=== PATIENT | female | born 1970 | race Caucasian/White ===

== ENCOUNTER 2024-06-07 20:17 | Emergency (ER) | payer OTHER, SELFPAY ==
[2024-06-07 20:27] VITALS: BP 180/94; PULSE 91; RESP 12; TEMP 37.1; O2SAT 98; BMI 27.4
--- NOTE | 2024-06-07 20:49 | ED.SYNCOPE ---
HPI - Syncope General Time Seen by Provider: 20:49 Date Seen: 06/07/24 Chief Complaint: Syncope/Fainted Stated Complaint: possible seizure Time Seen by Provider: 06/07/24 20:48 Source: patient, RN notes reviewed and old records reviewed Mode of arrival: ambulatory Limitations: no limitations History of Present Illness HPI narrative: 53-year-old who presents today with syncopal episode. Patient notes a lot of stress recently, was drinking alcohol and also had some marijuana, became lightheaded and passed out. Per family, patient had some jerking movements that were not constant of or sustained. No fall or injury. On waking patient was awake and alert. Patient denies preceding chest pain, nausea, vomiting, head pain. Takes losartan for blood pressure, no other medications. Related Data Previous Rx's ?Medication ?Instructions ?Recorded potassium chloride 20 mEq 20 meq PO DAILY #7 tabs 06/07/24 tablet,extended release Allergies Allergy/AdvReac Type Severity Reaction Status Date / Time bee venom protein (honey bee) Allergy Unknown Verified 06/07/24 20:37 gluten Allergy Unknown Verified 06/07/24 20:37 PFSH PFSH Social History Smoking Status: Never smoker Do you use any of these nicotine containing products: None Second hand tobacco smoke exposure: No How often do you have a drink containing alcohol: 2-4 times a month How many standard drinks containing alcohol do you have on a typical day: 3 or 4 How often do you have six or more drinks on one occasion: Less than monthly AUDIT-C Alcohol total score: 4 Non-prescribed substance use: denies use service: No Exam Narrative: Exam Narrative: General: Well-developed and well-nourished, no acute distress Head: Atraumatic and normocephalic Eyes: Pupils are equal reactive, extraocular motions intact, conjunctiva clear ENT: External nose and ears are normal, posterior pharynx without erythema or exudate Neck: No midline cervical tenderness, full spontaneous range of motion the neck, trachea midline, no adenopathy Heart: Regular rate and rhythm no murmurs or thrills Lungs: Clear to auscultation bilaterally without wheezes or crackles Abdomen: Soft, nontender, nondistended with active bowel sounds Musculoskeletal: No tenderness, deformity, or edema Neurologic: Awake, alert, and oriented x3, no gross focal neurologic deficits, cranial nerves intact as tested Psych: Mood and affect are appropriate Skin: No rashes Const: Vital Signs, click to edit/add: Vital Signs - 24 hr 06/07/24 20:27 Temperature 98.8 F Pulse Rate [Pulse Oximeter] 91 Respiratory Rate 12 Blood Pressure [Ri ght Upper Arm] 180/94 H Pulse Oximetry 98 Oxygen Delivery Me thod Room Air Course Course ED Course: Patient seen examined, no prior records for review. Patient presents today with syncopal episode. Family was concerned with possible seizure, does sound like she had some myoclonic jerks associated with this but no consistent tonic clonic activity and no postictal period. Patient denies chest pain prior to this although says she was feeling anxious and like her heart was racing. On exam here, awake and alert, occasionally tearful, no focal neurologic findings and heart is regular. Labs are ordered along with fluids, EKG and if no acute abnormalities patient can be discharged. Reevaluation(s) Time of Reevaluation #1: 21:19 Reevaluation #1: EKG ordered independently interpreted by me performed at 9:03 p.m. demonstrates sinus rhythm rate 79, no acute ST elevations or depressions, normal axis, normal intervals, CO 154, QTC 454. No prior for comparison Time of Reevaluation #2: 21:43 Reevaluation #2: Labs ordered and independently interpreted by me with negative troponin, normal CBC, mild hypokalemia and hyponatremia in patient has been given IV fluids, will begin oral potassium replacement as well. Time of Reevaluation #3: 22:04 Reevaluation #3: Labs ordered in [place] interpreted by me with normal urinalysis. Patient is stable for discharge with outpatient follow-up. Will be started on potassium replacement and can follow-up in clinic Vital Signs Vital signs: Initial Vital Signs Temperature 98.8 F 06/07/24 20:27 Temperature Source Temporal Artery Scan 06/07/24 20:27 Pulse Rate 91 06/07/24 20:27 Respiratory Rate 12 06/07/24 20:27 Blood Pressure 180/94 H 06/07/24 20:27 Blood Pressure Mean 122 H 06/07/24 20:27 Blood Pressure Position Sitting 06/07/24 20:27 Pulse Oximetry 98 06/07/24 20:27 Oxygen Delivery Method Room Air 06/07/24 20:27 Vital Signs Temperature 98.8 F 06/07/24 20:27 Pulse Rate 91 06/07/24 20:27 Respiratory Rate 12 06/07/24 20:27 Blood Pressure 180/94 H 06/07/24 20:27 Pulse Oximetry 98 06/07/24 20:27 Oxygen Delivery Method Room Air 06/07/24 20:27 Temperature 98.8 F 06/07/24 20:27 Pulse Rate 91 06/07/24 20:27 Respiratory Rate 12 06/07/24 20:27 Blood Pressure 180/94 H 06/07/24 20:27 Pulse Oximetry 98 06/07/24 20:27 Oxygen Delivery Method Room Air 06/07/24 20:27 Medications Administered Medications: Discontinued Medications Generic Name Dose Route Start Last Admin Trade Name Freq PRN Reason Stop Dose Admin Sodium Chloride 1,000 mls @ 1,000 mls/hr 06/07/24 21:00 06/07/24 21:10 0.9 % Sodium Chloride 1000 Ml IV 06/07/24 21:59 1,000 mls/hr .Q1H RIO Administration Potassium Bicarbonate 25 meq 06/07/24 21:44 06/07/24 21:51 Potassium Bicarb 25 Meq Effervescent Tab PO 06/07/24 21:45 25 meq ONCE ONE Administration MDM - Syncope Lab Data Labs: Lab Results 06/07/24 06/07/24 Range/Units 20:56 21:08 WBC 6.56 (4.50-11.00) K/uL RBC 3.86 L (4.00-5.20) m/uL Hgb 13.1 (12.0-16.0) gm/dL Hct 37.4 (33.0-51.0) % MCV 97 (80-100) fL MCH 34 (26-34) pg MCHC 35 (32-36) gm/dL RDW Coeff of Khris 11.7 (11.5-15.5) % Plt Count 236 (140-440) K/uL Neut % (Auto) 72.0 (42.0-72.0) % Lymph % (Auto) 17.5 L (20-44) % [place] % (Auto) 9.0 (0.0-11.0) % Eos % (Auto) 0.8 (0.0-7.0) % Baso % (Auto) 0.5 (0.0-3.0) % Neut # (Auto) 4.73 (1.7-7.0) K/uL Lymph # (Auto) 1.10 (0.90-2.90) K/uL [place] # (Auto) 0.60 (0.00-0.90) K/UL Eos # (Auto) 0.05 (0.00-0.50) K/uL Baso # (Auto) 0.03 (0.00-0.30) K/uL Abs Immat Gran (auto) 0.01 (0.00-0.30) K/uL Imm/Tot Granulo (auto) 0.2 % D-Dimer Quant (PE/DVT) 0.29 (0.00-0.50) ug/ml Sodium 130 L (135-149) mmol/L Potassium 3.1 L (3.6-5.1) mmol/L Chloride 96 (96-114) mmol/L Carbon Dioxide 25 (20-32) mmol/L Anion Gap 9 (7-15) mEq/L BUN 9 (7-30) mg/dL Creatinine 0.6 (0.5-1.5) mg/dL Estimated Creat Clear 99.18 Estimated GFR 106 ml/min Glucose 100 (60-115) mg/dL Calcium 9.4 (8.4-10.6) mg/dL Magnesium 2.2 (1.5-2.6) mg/dL Urine Color Yellow (Yellow) Urine Appearance Clear (Clear) Urine pH 7.0 (5.0-8.5) Ur Specific [place] <= 1.005 (1.000-1.030) Urine Protein Negative (Negative) Urine Glucose (UA) Negative (Negative) Urine Ketones Negative (Negative) Urine Blood 1+ A (Negative) Urine Nitrite Negative (Negative) Urine Bilirubin Negative (Negative) Urine Urobilinogen 0.2 (0.2-1.0) Ur Leukocyte Esterase Negative (Negative) POC Troponin I 0.00 L (0.01-0.04) ng/ml Discharge Plan Discharge Clinical Impression: Syncope, Hypokalemia Patient Disposition: Home, Self-Care Condition: Stable Instructions: Hypokalemia (ED), Syncope (ED) Additional Instructions: Fluids and rest, avoid alcohol Activity Level: Activity as Tolerated Discharge Diet: Regular Prescriptions: New potassium chloride 20 mEq tablet extended release 20 meq PO DAILY Qty: 7 0RF Follow Up/Referrals: Provider,Not a Local [Primary Care Provider] - Stand Alone Forms: [facility] Info Instructions
[2024-06-07] MEDS: 0.9 % SODIUM CHLORIDE 1000 ml 1,000 ML IV (21:10)
[2024-06-07 21:15] LABS: Basophils Absolute Auto 0.03 K/uL (0.00-0.30); Basophils Percent Auto 0.5 % (0.0-3.0); Eosinophils Absolute Auto 0.05 K/uL (0.00-0.50); Eosinophils Percent Auto 0.8 % (0.0-7.0); Hematocrit 37.4 % (33.0-51.0); Hemoglobin* 13.1 gm/dL (12.0-16.0); Immature Granulocytes Abs Auto 0.01 K/uL (0.00-0.30); Immature Granulocytes Pct Auto 0.2 %; Lymphocytes Percent Auto 17.5 % (20-44); Mean Corpuscular HGB Conc 35 gm/dL (32-36); Mean Corpuscular Hemoglobin 34 pg (26-34); Mean Corpuscular Volume 97 fL (80-100); Neutrophils Absolute Auto 4.73 K/uL (1.7-7.0); Platelet Count* 236 K/uL (140-440); RDW Coefficient of Variation % 11.7 % (11.5-15.5); Red Blood Count 3.86 m/uL (4.00-5.20); White Blood Count* 6.56 K/uL (4.50-11.00)
[2024-06-07 21:27] LABS: Slide Review Reflex No
[2024-06-07 21:29] LABS: Chloride* 96 mmol/L (96-114)
[2024-06-07 21:30] LABS: Potassium* 3.1 mmol/L (3.6-5.1); Sodium* 130 mmol/L (135-149)
[2024-06-07 21:32] LABS: Creatinine* 0.6 mg/dL (0.5-1.5); Est. Creatinine Clearance* 99.18; Estimated Glomerular Filt Rate 106 ml/min
[2024-06-07 21:33] LABS: Anion Gap 9 mEq/L (7-15); Blood Urea Nitrogen* 9 mg/dL (7-30); Calcium* 9.4 mg/dL (8.4-10.6); Carbon Dioxide* 25 mmol/L (20-32); Glucose* 100 mg/dL (60-115); Magnesium* 2.2 mg/dL (1.5-2.6)
[2024-06-07 21:34] LABS: D Dimer Quantitative* 0.29 ug/ml (0.00-0.50)
[2024-06-07] MEDS: POTASSIUM BICARB 25 MEQ EFFERVESCENT TAB PO (21:51)
[2024-06-07 21:59] LABS: Appearance Urine Clear (Clear); Bilirubin Urine Negative (Negative); Blood Urine 1+ (Negative); Color Urine Yellow (Yellow); Glucose Urine Negative (Negative); Ketones Urine Negative (Negative); Leukocyte Esterase Urine Negative (Negative); Nitrite Urine Negative (Negative); Protein Urine Negative (Negative); Specific Gravity Urine <= 1.005 (1.000-1.030); Urobilinogen Urine 0.2 (0.2-1.0)
[2024-06-07 22:03] LABS: RBC Urine 0-2 (0-2); Squamous Epithelial Cell Urine Few (None-Few); WBC Urine 0-2 (0-5)
== END 2024-06-07 22:14 | disposition home or self-care (01) ==
PROVIDERS: Emergency Provider Family Medicine
DX: R55 Syncope and collapse (principal); E87.6 Hypokalemia
CPT/HCPCS: 36415; 80048; 81001; 83735; 84484; 85025; 85379; 93005; 99284; A9270; J7030